=== PATIENT | female | born 1965 | race Caucasian/White ===

== ENCOUNTER 2018-07-03 02:01 | Outpatient (CLI) | payer BC, SELFPAY ==
--- NOTE | 2018-07-03 13:52 | DI.COMBO_ITS ---
SYMPTOMS/DIAGNOSIS: LUMP OF RIGHT BREAST, N63.10, RIGHT UPPER OUTER QUADRANT LUMP DIAGNOSTIC BILATERAL MAMMOGRAM AND RIGHT BREAST ULTRASOUND: Mammograms were interpreted according to the usual protocol including computer analysis with CAD system, tomosynthesis and C view imaging. MAMMOGRAMS: The palpable abnormality is felt in the axilla. A BB marker is placed over this area. Comparison is made with exams from 2008. The breasts are composed of heterogeneously dense fibroglandular tissue, breast density category C. Beneath the area marked, in the axilla, there is an abnormally enlarged dense rounded mass, partially included on the MLO view, consistent with a pathologically enlarged lymph node. In the upper outer quadrant of the right breast, there is a 16 mm ill-defined mass. Two other areas of increased density are questioned, which did not persistent on spot compression views, one in the upper outer quadrant and the other closer to the nipple. There are abnormal, pleomorphic and branching calcifications seen in the upper outer quadrant of the right breast over a large area of approximately 8 cm. The left breast shows no evidence of masses or specific calcifications or changes since the previous exam. RIGHT BREAST ULTRASOUND: Right breast ultrasound shows an irregular mass in the upper outer quadrant, at the 10 o'clock position 6 cm from the nipple, measuring 1.6 cm. No additional masses were identified in the right breast. In the axilla, there is an abnormally enlarged, hypoechoic mass measuring 2.9 x 3 x 2.7 cm, which likely represents a metastatic lymph node. Additional smaller lymph nodes are seen, which have a normal appearance. IMPRESSION: Left breast category 1, negative. Right breast category 5. Mammogram and ultrasound findings are highly suspicious for malignancy. The findings were communicated to the patient, as well as [facility] after completion of the exam. [facility] ASSESSMENT OF FINDINGS: Highly suspicious of malignancy. Biopsy should be obtained. Category 5. Patient will receive a letter notifying them of these results. Bi-RADS category C. The breasts are heterogeneously dense, which may obscure small masses.
== END 2018-07-03 02:21 ==
PROVIDERS: PCP Nurse Practitioner Family; Visit Provider Nurse Practitioner Family
DX: N63.11 Unspecified lump in the right breast, upper outer quadrant (principal); R92.8 Other abnormal and inconclusive findings on diagnostic imaging of breast; R22.31 Localized swelling, mass and lump, right upper limb
CPT/HCPCS: 76642; 77062; 77066; G0279

== ENCOUNTER 2018-07-07 07:19 | Outpatient (CLI) | payer BC, SELFPAY ==
[2018-07-07 07:41] LABS: Abs Immature Grans 0.01 k/cumm (0.0-0.09); Absolute Basophil Count 0.03 k/cumm (0.0-0.2); Absolute Lymphocyte Count 1.53 k/cumm (1.2-3.4); Absolute Monocyte Count 0.45 k/cumm (0.11-0.7); Absolute Neutrophil Count 3.33 k/cumm (1.2-6.7); Basophils % 0.6; Eosinophils % 1.8; HCT 41.2 % (36.0-46.0); HGB 13.1 g/dL (12.0-15.5); Immature Grans % 0.2; Lymphocytes % 28.1; Mean Corp. HGB Concentration 31.8 g/dL (32.0-36.0); Mean Corpuscular Hemoglobin 28.9 pg (27.0-33.0); Mean Corpuscular Volume 90.7 fL (80-95); Monocytes % 8.3; Platelet Count 270 x1000/uL (130-400); RBC 4.54 m/cumm (4.00-5.20); RBC Distribution Width 12.2 % (11.7-14.6); White Blood Cell Count 5.45 k/cumm (4.4-10.8)
[2018-07-07 08:41] LABS: Anion Gap 7.6 mmol/L (3-11); BUN 21 mg/dL (7-18); CO2 30.4 mmol/L (21.0-32.0); CREATININE 1.02 mg/dL (0.55-1.02); Calcium 8.5 mg/dL (8.5-10.1); Chloride 104 mmol/L (98-107); Cholesterol 175 mg/dL (50-200); Estimated GFR 57.13 (mL/min/1.73m2); Glucose 106 mg/dL (70-100); HDL Cholesterol 58 mg/dL (40-60); LDL CHOLESTEROL 103 mg/dL (<100); Potassium 4.3 mmol/L (3.5-5.1); Sodium 142 mmol/L (136-145); TSH (W/Ref FT4) 5.77 uIU/mL (0.358-3.74); Triglyceride 92 mg/dL (30-150)
[2018-07-07 09:01] LABS: FREE T4 1.05 ng/dL (0.76-1.46)
== END 2018-07-07 07:39 ==
PROVIDERS: PCP Nurse Practitioner Family; Visit Provider Nurse Practitioner Family
DX: Z00.00 Encounter for general adult medical examination without abnormal findings (principal); N63.10 Unspecified lump in the right breast, unspecified quadrant; Z13.228 Encounter for screening for other metabolic disorders; Z13.220 Encounter for screening for lipoid disorders; Z13.29 Encounter for screening for other suspected endocrine disorder
CPT/HCPCS: 36415; 80048; 80061; 83721; 84439; 84443; 85025

== ENCOUNTER 2018-07-30 12:31 | Outpatient (REF) | payer BC, SELFPAY ==
--- NOTE | 2018-07-30 08:30 | PAPFT_PTH ---
PATIENT: Zaria Leiva LOC: [facility] U#:[id number] AGE/SX: 52/F ROOM: RE07/30/[address]: SURINDER Gomez : 1965 BED: DIS: 07/30/2018 SPEC #: [id number] RECD: 07/30/18 12:53 STATUS: BERT RERaymond #: [id number] SHU: 07/30/18 08:[address]: Marivel Ballesteros DEPT: [facility] Cytology RECD BY: Brianna Matute Tissues: 1 - CX/ENDOCX FOR PAP SMEARS Procedures: PAP THIN PREP/UVM Screening HPV DNA PROBE Comments: [id number]
== END 2018-07-30 12:51 ==
LOC: LBN 12:31
PROVIDERS: PCP Nurse Practitioner Family; Visit Provider Nurse Practitioner Family
DX: Z12.4 Encounter for screening for malignant neoplasm of cervix (principal); Z11.51 Encounter for screening for human papillomavirus (HPV)
CPT/HCPCS: 88142; 87624

== ENCOUNTER 2018-11-10 02:30 | Outpatient (CLI) | payer OTHER, SELFPAY ==
[2018-11-10 15:06] LABS: Abs Immature Grans 0.01 k/cumm (0.0-0.09); Absolute Basophil Count 0.01 k/cumm (0.0-0.2); Absolute Eosinophil Count 0.08 k/cumm (0.0-0.7); Absolute Monocyte Count 0.51 k/cumm (0.11-0.7); Basophils % 0.2; Eosinophils % 1.5; HCT 39.6 % (36.0-46.0); HGB 13.3 g/dL (12.0-15.5); Immature Grans % 0.2; Lymphocytes % 16.9; Mean Corp. HGB Concentration 33.6 g/dL (32.0-36.0); Mean Corpuscular Volume 89.2 fL (80-95); Mean Platelet Volume 9.9 fL (8.0-11.0); Monocytes % 9.6; Neutrophils % 71.6; Platelet Count 234 x1000/uL (130-400); RBC 4.44 m/cumm (4.00-5.20); RBC Distribution Width 12.2 % (11.7-14.6); White Blood Cell Count 5.31 k/cumm (4.4-10.8)
[2018-11-10 15:29] LABS: Hemoglobin A1C 5.9 % (4.5-6.2)
[2018-11-10 16:34] LABS: ALT 49 U/L (12-78); AST 22 U/L (15-37); Albumin 3.8 g/dL (3.4-5.0); Alkaline Phosphatase 59 U/L (46-116); Anion Gap 7.3 mmol/L (3-11); BUN 25 mg/dL (7-18); Bilirubin, Total 0.3 mg/dL (0.2-1.0); CO2 28.7 mmol/L (21.0-32.0); CREATININE 1.08 mg/dL (0.55-1.02); Calcium 9.1 mg/dL (8.5-10.1); Chloride 103 mmol/L (98-107); Estimated GFR 53.28 (mL/min/1.73m2); Glucose 91 mg/dL (70-100); Potassium 3.9 mmol/L (3.5-5.1); Sodium 139 mmol/L (136-145); TSH 4.08 uIU/mL (0.358-3.74); Total Protein 7.5 g/dL (6.4-8.2)
[2018-11-10 16:51] LABS: FREE T4 1.03 ng/dL (0.76-1.46)
== END 2018-11-10 02:50 ==
PROVIDERS: PCP Nurse Practitioner Family; Visit Provider Nurse Practitioner Family
DX: E04.9 Nontoxic goiter, unspecified (principal); R73.03 Prediabetes; E78.5 Hyperlipidemia, unspecified; C50.411 Malignant neoplasm of upper-outer quadrant of right female breast; Z17.0 Estrogen receptor positive status [ER+]
CPT/HCPCS: 36415; 80053; 83036; 84439; 84443; 85025

== ENCOUNTER 2018-11-25 08:29 | Outpatient (CLI) | payer OTHER, SELFPAY ==
[2018-11-25 16:09] LABS: Abs Immature Grans 0.06 k/cumm (0.0-0.09); Absolute Basophil Count 0.03 k/cumm (0.0-0.2); Absolute Eosinophil Count 0.02 k/cumm (0.0-0.7); Absolute Lymphocyte Count 0.91 k/cumm (1.2-3.4); Absolute Monocyte Count 0.69 k/cumm (0.11-0.7); Absolute Neutrophil Count 6.48 k/cumm (1.2-6.7); Basophils % 0.4; Eosinophils % 0.2; HCT 39.2 % (36.0-46.0); HGB 13.2 g/dL (12.0-15.5); Immature Grans % 0.7; Lymphocytes % 11.1; Mean Corp. HGB Concentration 33.7 g/dL (32.0-36.0); Mean Corpuscular Hemoglobin 30.2 pg (27.0-33.0); Mean Corpuscular Volume 89.7 fL (80-95); Monocytes % 8.4; Neutrophils % 79.2; Platelet Count 222 x1000/uL (130-400); RBC 4.37 m/cumm (4.00-5.20); RBC Distribution Width 12.4 % (11.7-14.6); White Blood Cell Count 8.19 k/cumm (4.4-10.8)
== END 2018-11-25 08:49 ==
PROVIDERS: PCP Nurse Practitioner Family; Visit Provider Nurse Practitioner Family
DX: C50.411 Malignant neoplasm of upper-outer quadrant of right female breast (principal); Z17.0 Estrogen receptor positive status [ER+]
CPT/HCPCS: 36415; 85025

== ENCOUNTER 2018-12-03 02:00 | Outpatient (CLI) | payer OTHER, SELFPAY ==
[2018-12-03 15:16] LABS: Abs Immature Grans 0.01 k/cumm (0.0-0.09); Absolute Basophil Count 0.01 k/cumm (0.0-0.2); Absolute Lymphocyte Count 0.28 k/cumm (1.2-3.4); Absolute Monocyte Count 0.02 k/cumm (0.11-0.7); Basophils % 0.1; HCT 41.1 % (36.0-46.0); HGB 13.6 g/dL (12.0-15.5); Immature Grans % 0.1; Lymphocytes % 2.8; Mean Corp. HGB Concentration 33.1 g/dL (32.0-36.0); Mean Corpuscular Hemoglobin 29.8 pg (27.0-33.0); Mean Corpuscular Volume 89.9 fL (80-95); Monocytes % 0.2; Neutrophils % 96.8; Platelet Count 449 x1000/uL (130-400); RBC 4.57 m/cumm (4.00-5.20); White Blood Cell Count 10.02 k/cumm (4.4-10.8)
[2018-12-03 15:26] LABS: ALT 74 U/L (12-78); AST 32 U/L (15-37); Albumin 3.8 g/dL (3.4-5.0); Alkaline Phosphatase 67 U/L (46-116); Anion Gap 8.3 mmol/L (3-11); BUN 19 mg/dL (7-18); Bilirubin, Total 0.4 mg/dL (0.2-1.0); CO2 29.7 mmol/L (21.0-32.0); CREATININE 0.95 mg/dL (0.55-1.02); Calcium 9.5 mg/dL (8.5-10.1); Chloride 103 mmol/L (98-107); Glucose 154 mg/dL (70-100); Potassium 4.1 mmol/L (3.5-5.1); Sodium 141 mmol/L (136-145); Total Protein 8.3 g/dL (6.4-8.2)
== END 2018-12-03 02:20 ==
PROVIDERS: PCP Nurse Practitioner Family; Visit Provider Nurse Practitioner Family
DX: C50.411 Malignant neoplasm of upper-outer quadrant of right female breast (principal); Z17.0 Estrogen receptor positive status [ER+]
CPT/HCPCS: 36415; 80053; 85025

== ENCOUNTER 2018-12-24 00:52 | Outpatient (CLI) | payer OTHER, SELFPAY ==
[2018-12-24 14:36] LABS: Abs Immature Grans 0.01 k/cumm (0.0-0.09); Absolute Basophil Count 0.01 k/cumm (0.0-0.2); Absolute Eosinophil Count 0.03 k/cumm (0.0-0.7); Absolute Lymphocyte Count 0.51 k/cumm (1.2-3.4); Absolute Neutrophil Count 7.39 k/cumm (1.2-6.7); Basophils % 0.1; Eosinophils % 0.4; HGB 12.1 g/dL (12.0-15.5); Immature Grans % 0.1; Lymphocytes % 6.3; Mean Corp. HGB Concentration 33.6 g/dL (32.0-36.0); Mean Corpuscular Volume 89.3 fL (80-95); Mean Platelet Volume 9.5 fL (8.0-11.0); Monocytes % 2.5; Neutrophils % 90.6; Platelet Count 396 x1000/uL (130-400); RBC 4.03 m/cumm (4.00-5.20); RBC Distribution Width 13.5 % (11.7-14.6); White Blood Cell Count 8.15 k/cumm (4.4-10.8)
[2018-12-24 14:52] LABS: ALT 40 U/L (12-78); AST 31 U/L (15-37); Albumin 3.5 g/dL (3.4-5.0); Alkaline Phosphatase 67 U/L (46-116); Anion Gap 7.6 mmol/L (3-11); BUN 18 mg/dL (7-18); Bilirubin, Total 0.3 mg/dL (0.2-1.0); CO2 29.4 mmol/L (21.0-32.0); Calcium 9.1 mg/dL (8.5-10.1); Chloride 103 mmol/L (98-107); Glucose 142 mg/dL (70-100); Potassium 3.8 mmol/L (3.5-5.1); Sodium 140 mmol/L (136-145); Total Protein 7.7 g/dL (6.4-8.2)
== END 2018-12-24 01:12 ==
PROVIDERS: PCP Nurse Practitioner Family; Visit Provider Nurse Practitioner Family
DX: C50.411 Malignant neoplasm of upper-outer quadrant of right female breast (principal); Z17.0 Estrogen receptor positive status [ER+]
CPT/HCPCS: 36415; 80053; 85025

== ENCOUNTER 2019-01-14 02:00 | Outpatient (CLI) | payer OTHER, SELFPAY ==
[2019-01-14 14:56] LABS: Abs Immature Grans 0.01 k/cumm (0.0-0.09); Absolute Basophil Count 0.01 k/cumm (0.0-0.2); Absolute Monocyte Count 0.22 k/cumm (0.11-0.7); Absolute Neutrophil Count 6.27 k/cumm (1.2-6.7); Basophils % 0.1; HCT 33.3 % (36.0-46.0); HGB 11.2 g/dL (12.0-15.5); Immature Grans % 0.1; Lymphocytes % 5.8; Mean Corp. HGB Concentration 33.6 g/dL (32.0-36.0); Mean Corpuscular Hemoglobin 30.4 pg (27.0-33.0); Mean Corpuscular Volume 90.5 fL (80-95); Mean Platelet Volume 9.1 fL (8.0-11.0); Monocytes % 3.2; Neutrophils % 90.8; Platelet Count 375 x1000/uL (130-400); RBC 3.68 m/cumm (4.00-5.20); RBC Distribution Width 14.4 % (11.7-14.6); White Blood Cell Count 6.91 k/cumm (4.4-10.8)
[2019-01-14 15:08] LABS: ALT 48 U/L (12-78); AST 36 U/L (15-37); Albumin 3.5 g/dL (3.4-5.0); Alkaline Phosphatase 63 U/L (46-116); Anion Gap 8.1 mmol/L (3-11); BUN 21 mg/dL (7-18); Bilirubin, Total 0.4 mg/dL (0.2-1.0); CO2 28.9 mmol/L (21.0-32.0); CREATININE 0.73 mg/dL (0.55-1.02); Calcium 9.1 mg/dL (8.5-10.1); Chloride 103 mmol/L (98-107); Glucose 141 mg/dL (70-100); Potassium 3.8 mmol/L (3.5-5.1); Sodium 140 mmol/L (136-145); Total Protein 7.3 g/dL (6.4-8.2)
== END 2019-01-14 02:20 ==
PROVIDERS: PCP Nurse Practitioner Family
DX: C50.411 Malignant neoplasm of upper-outer quadrant of right female breast (principal); Z17.0 Estrogen receptor positive status [ER+]
CPT/HCPCS: 36415; 80053; 85025

== ENCOUNTER 2019-07-31 10:34 | Outpatient (CLI) | payer OTHER, SELFPAY ==
[2019-07-31 13:16] LABS: Calculated LDL 70 mg/dL; Cholesterol 164 mg/dL (50-200); HDL Cholesterol 64 mg/dL (40-60); Triglyceride 151 mg/dL (30-150)
[2019-07-31 13:33] LABS: Hemoglobin A1C 5.4 % (4.5-6.2)
[2019-07-31 17:11] LABS: FREE T4 0.83 ng/dL (0.76-1.46); TSH 4.94 uIU/mL (0.36-3.74)
[2019-08-03 09:32] LABS: Thyroglobulin Antibody 146 U/mL (<61); Thyroperoxidase Antibody 688 U/mL (<61)
== END 2019-07-31 10:54 ==
PROVIDERS: PCP Nurse Practitioner Family; Visit Provider Nurse Practitioner Family
DX: E03.9 Hypothyroidism, unspecified (principal); R73.03 Prediabetes; R79.89 Other specified abnormal findings of blood chemistry
CPT/HCPCS: 36415; 80061; 86376; 83036; 84439; 84443

== ENCOUNTER 2019-08-19 14:59 | Outpatient (CLI) | payer OTHER, SELFPAY ==
[2019-08-20 13:20] LABS: Thyroglobulin Antibody 148 U/mL (<61); Thyroperoxidase Antibody 811 U/mL (<61)
== END 2019-08-19 15:19 ==
PROVIDERS: PCP Nurse Practitioner Family; Visit Provider Nurse Practitioner Family
DX: E03.9 Hypothyroidism, unspecified (principal)
CPT/HCPCS: 36415; 86376

== ENCOUNTER 2019-09-07 01:14 | Outpatient (CLI) | payer OTHER, SELFPAY ==
--- NOTE | 2019-09-07 15:48 | DI.US_ITS ---
EXAM: US THYROID CLINICAL HISTORY: Questioning thyromegaly E04.9 GOITER, E03.9 HYPOTHYROIDISM, H/O BREAST CA TECHNIQUE: Ultrasound performed using standard protocol. COMPARISON: No previous for comparison FINDINGS: The right lobe measures 4.3 x 1.9 x 1.5 cm. No discrete mass is seen. The left lobe measures 3.5 x 1.1 x 0.9 cm. No discrete mass is present. The isthmus is within normal limits at 3.2 mm. There is symmetric blood flow to the thyroid gland. IMPRESSION: No evidence of thyromegaly or thyroid mass.
== END 2019-09-07 01:34 ==
PROVIDERS: PCP Nurse Practitioner Family; Visit Provider Nurse Practitioner Family
DX: E03.9 Hypothyroidism, unspecified (principal); Z85.3 Personal history of malignant neoplasm of breast
CPT/HCPCS: 76536

== ENCOUNTER 2020-08-04 22:53 | Outpatient (REF) | payer OTHER, SELFPAY ==
[2020-08-04 21:16] LABS: HCT 40.8 % (36.0-46.0); HGB 13.5 g/dL (11.2-15.7); MCH 30.1 pg (27.0-33.0); MCHC 33.1 % (32.0-36.0); MCV 90.9 fL (80-95); MPV 11.1 fL (8.0-11.0); Platelet Count 252 10^3/uL (130-400); RBC 4.49 10^6/uL (3.93-5.22); RDW 11.8 % (11.7-14.6); RDW-SD 38.5 fL; WBC 5.27 10^3/uL (4.4-10.8)
[2020-08-04 21:44] LABS: ALT 26 U/L (14-59); AST 21 U/L (15-37); Albumin 3.9 g/dL (3.4-5.0); Alkaline Phosphatase 52 U/L (46-116); Anion Gap 7.6 mmol/L (3-11); BUN 19 mg/dL (7-18); Bilirubin, Total 0.3 mg/dL (0.2-1.0); CO2 29.4 mmol/L (21.0-32.0); CREATININE 0.88 mg/dL (0.55-1.02); Chloride 103 mmol/L (98-107); FREE T4 0.88 ng/dL (0.76-1.46); Glucose 85 mg/dL (74-106); Potassium 4.1 mmol/L (3.5-5.1); Sodium 140 mmol/L (136-145); TSH 5.82 uIU/mL (0.36-3.74); Total Protein 7.6 g/dL (6.4-8.2)
== END 2020-08-04 23:13 ==
LOC: LBN 22:53
PROVIDERS: PCP Nurse Practitioner Family; Visit Provider Nurse Practitioner Family
DX: E03.9 Hypothyroidism, unspecified (principal); Z85.3 Personal history of malignant neoplasm of breast
CPT/HCPCS: 80053; 85027; 84439; 84443

== ENCOUNTER 2021-03-17 13:36 | Outpatient (REF) | payer OTHER, SELFPAY ==
--- NOTE | 2021-03-17 13:00 | PAPFT_PTH ---
PATIENT: Zaria Leiva LOC: [facility] U#:[id number] AGE/SX: 55/F ROOM: RE03/17/[address]: SURINDER Gomez : 1965 BED: DIS: 03/17/2021 SPEC #: [id number] RECD: 03/21/21 12:35 STATUS: BERT RERaymond #: [id number] SHU: 03/17/21 13:[address]: Marivel Ballesteros DEPT: [facility] Cytology RECD BY: Brianna Matute Tissues: 1 - CX/ENDOCX FOR PAP SMEARS Procedures: PAP THIN PREP/UVM Screening HPV DNA PROBE Comments: [id number]
== END 2021-03-17 13:37 | disposition home or self-care (01) ==
LOC: LBN 13:36
PROVIDERS: PCP Nurse Practitioner Family; Visit Provider Nurse Practitioner Family
DX: Z12.4 Encounter for screening for malignant neoplasm of cervix (principal); Z11.51 Encounter for screening for human papillomavirus (HPV)
CPT/HCPCS: 88142; 87624

== ENCOUNTER 2021-10-26 03:03 | Outpatient (CLI) | payer OTHER, SELFPAY ==
[2021-10-26 14:58] LABS: Anion Gap 5.8 mmol/L (3-11); BUN 24 mg/dL (7-18); CO2 31.2 mmol/L (21.0-32.0); CREATININE 0.9 mg/dL (0.55-1.02); Calcium 8.7 mg/dL (8.5-10.1); Chloride 104 mmol/L (98-107); FREE T4 0.82 ng/dL (0.76-1.46); Glucose 108 mg/dL (74-106); Potassium 3.7 mmol/L (3.5-5.1); Sodium 141 mmol/L (136-145); TSH 6.04 uIU/mL (0.36-3.74)
== END 2021-10-26 03:04 | disposition home or self-care (01) ==
LOC: LBO 03:03
PROVIDERS: PCP Nurse Practitioner Family; Visit Provider Nurse Practitioner Family
DX: E03.9 Hypothyroidism, unspecified (principal)
CPT/HCPCS: 36415; 80048; 84439; 84443

== ENCOUNTER 2022-10-16 02:12 | Outpatient (CLI) | payer BC, SELFPAY ==
[2022-10-16 14:51] LABS: HCT 38.3 % (36.0-46.0); HGB 12.8 g/dL (11.2-15.7); MCH 30.1 pg (27.0-33.0); MCHC 33.4 % (32.0-36.0); MCV 90 fL (80-95); MPV 10.2 fL (8.0-11.0); Neutrophils % 59.6; Platelet Count 237 10^3/uL (130-400); RBC 4.25 10^6/uL (3.93-5.22); RDW 11.9 % (11.7-14.6); RDW-SD 39.2 fL; WBC 5.42 10^3/uL (4.4-10.8)
[2022-10-16 14:52] LABS: Abs Immature Grans 0.01 10^3/uL (0.0-0.06); Absolute Basophil Count 0.03 10^3/uL (0.0-0.2); Absolute Lymphocyte Count 1.46 10^3/uL (1.2-3.4); Absolute Monocyte Count 0.59 10^3/uL (0.1-0.8); Absolute Neutrophil Count 3.23 10^3/uL (1.2-6.7); Basophils % 0.6; Eosinophils % 1.8; Immature Grans % 0.2; Lymphocytes % 26.9; Monocytes % 10.9
[2022-10-16 15:47] LABS: ALT 22 U/L (14-59); AST 25 U/L (15-37); Albumin 3.9 g/dL (3.4-5.0); Alkaline Phosphatase 61 U/L (46-116); Anion Gap 4.6 mmol/L (3-11); BUN 21 mg/dL (7-18); Bilirubin, Total 0.2 mg/dL (0.2-1.0); CO2 31.4 mmol/L (21.0-32.0); CREATININE 1.1 mg/dL (0.55-1.02); Calcium 8.7 mg/dL (8.5-10.1); Chloride 103 mmol/L (98-107); Estimated GFR 58.97 (mL/min/1.73m2); Glucose 110 mg/dL (74-106); Sodium 139 mmol/L (136-145); TSH (W/Ref FT4) 6.91 uIU/mL (0.36-3.74); Total Protein 7.9 g/dL (6.4-8.2)
[2022-10-16 16:08] LABS: FREE T4 0.83 ng/dL (0.76-1.46)
== END 2022-10-16 02:13 | disposition home or self-care (01) ==
LOC: LBO 02:12
PROVIDERS: PCP Nurse Practitioner Family; Visit Provider Nurse Practitioner Family
DX: R25.2 Cramp and spasm (principal); Z85.3 Personal history of malignant neoplasm of breast; E03.9 Hypothyroidism, unspecified
CPT/HCPCS: 36415; 80053; 83735; 84439; 84443; 85025

== ENCOUNTER 2023-01-07 19:38 | Emergency (ER) | payer BC, SELFPAY ==
[2023-01-07 19:41] VITALS: BP 146/76; PULSE 74; RESP 16; TEMP 36.2; O2SAT 97
--- NOTE | 2023-01-07 19:53 | ED.GENADUL_ITS ---
Discharge Plan Disposition Patient Disposition: Home Condition: Good Discharge Details Clinical Impression: Contusion of chest wall Primary Care Provider: Marivel Ballesteros ED Provider: Emmy Bryant Home Meds and New Rx's Prescriptions: Continued tamoxifen 20 mg tablet 20 mg PO DAILY multivitamin [One Daily Multivitamin] Tablet 1 tab PO DAILY magnesium oxide 500 mg capsule 500 mg PO QHS Discharge Instructions Instructions: Contusion in Adults (ED) Additional Instructions: Imaging is reassuring here today. Please encourage hydration. May use Tylenol and/or ibuprofen as needed for discomfort. Please follow-up with primary care in 1 to 2 weeks for reevaluation. If you develop shortness of breath, increased pain, fever/chills or other new/worsening symptom please seek care urgently once again. Referrals: Marivel Ballesteros, [employer] [Primary Care Provider] - Medical Decision Making Patient is a pleasant 57-year-old female presenting with chief complaint of right-sided chest pain after being kicked in the chest by a horse. States that it happened about 2 hours prior to arrival. She states that the horse kicked her with his rear foot. Did not fall to the ground. Did not strike her head, no loss of consciousness. Denies feeling short of breath but states that she does have some discomfort with deep inspiration. No cough. Pain does not radiate. No nausea, vomiting, back pain. She denies any incontinence. Denies any pain rating into the arm. Denies any arm pain. On exam, patient appears nontoxic. Hemodynamically stable. Lungs are clear. Abdomen is benign. Minimal discomfort elicited on the upper aspect of the ribs on the right side laterally. However, no deformity or crepitus is palpable. No pain with AP or lateral compression of the ribs. No abdominal tenderness. No midline tenderness of the C, T or L-spine. We will obtain an ultrasound. Efast performed by myself and Dr. Hull with no acute traumatic injury noted. FINDINGS: Lungs: No pulmonary consolidation is seen. Pleural spaces: No pleural effusion or pneumothorax is demonstrated. Heart/Mediastinum: Heart size is normal. Bones/joints: The visualized bony structures appear grossly intact, as seen. IMPRESSION: No active disease is seen in the chest. Discussed with patient. We will give incentive spirometer to encourage deep breathing. Advised contusion. Encourage hydration. Tylenol and ibuprofen as needed for discomfort. I did offer ibuprofen and patient declined, advised that she will take this at home. Return precautions discussed. Encourage follow-up with primary care. Her questions and concerns were addressed and she is in agreement with this plan. HPI General Date/Time Provider Initiated Documentation: 01/07/23 19:41 . Limitations to Documentation: no limitations . Information obtained by: patient, family and RN notes reviewed . History of Present Illness 57 year old F presents to the emergency department with the chief complaint of right upper chest pain after being kicked by horse, described as moderate, with intensity rated at 4. Quality is described as aching, and is localized to the chest. Patient reports no radiation. Patient started experiencing this hour(s) and it has been constant (improving). Immobilization improves symptom(s), Other factors that worsen symptoms (deep breathing, leaning forward) . Patient notes no other symptoms.. Patient did receive the following treatments prior to arrival, none Related Data Home Medications Medication Instructions Recorded Confirmed tamoxifen 20 mg tablet 20 mg PO DAILY 07/31/19 10/12/22 multivitamin (One Daily 1 tab PO DAILY 10/11/21 10/12/22 Multivitamin tablet) magnesium oxide 500 mg capsule 500 mg PO QHS 10/12/22 10/12/22 Allergies Allergy/AdvReac Type Severity Reaction Status Date / Time No Known Allergies Allergy Unverified 10/11/21 13:01 General Stated Complaint: Trauma JAMES: 3 Review of Systems Constitutional Constitutional: Reports as per HPI, Denies headache(s) and Denies weakness Eyes Eyes: Reports as per HPI and Denies change in vision ENT Ears, Nose, Mouth, and Throat: Denies abnormal hearing and Denies headache(s) Cardiovascular Cardiovascular: Reports as per HPI and Denies dyspnea Respiratory Respiratory: Reports as per HPI, Denies cough and Denies dyspnea Gastrointestinal Gastrointestinal: Reports as per HPI, Denies abdominal pain, Denies nausea and Denies vomiting Genitourinary Genitourinary: Reports as per HPI and Denies urinary incontinence Musculoskeletal Musculoskeletal: Reports as per HPI Integumentary/Breasts Skin/Breast: Reports as per HPI and Denies rash Neurologic Neurologic: Reports as per HPI, Denies abnormal hearing, Denies abnormal movements, Denies abnormal speech, Denies headache(s), Denies lack of coordination, Denies localized weakness, Denies seizure-like activity, Denies paresthesias and Denies weakness PFSH All Active Problems (Updated 01/07/23 @ 21:27 by JEN Starks) Contusion of chest wall (Acute) History of right breast cancer (Chronic) 2018, DCIS, ER/HI positive HER-2 negative. S/p mastectomy, radiation, chemo. Tamoxifen started 03/15, planned for 5yrs. Followed by [facility] Oncology Subclinical hypothyroidism (Chronic) Medical History COVID-19 virus infection (~01/2021) Malignant neoplasm of right breast (~06/2018) 2018, DCIS, ER/HI positive HER-2 negative. S/p mastectomy, radiation, chemo. Tamoxifen started 03/15, planned for 5yrs. Followed by [facility] Oncology Prediabetes Surgical History H/O lymph node excision (08/22/18) From right axillary, negative for cancer H/O wisdom tooth extraction (~1987) Status post partial mastectomy of right breast (08/22/18) Family History Self Adopted Maternal Grandmother Diabetes Social History (Updated 10/12/22 @ 16:34 by Carmen Yang) Smoking/Tobacco Use Status: Former Tobacco Use Quit Date: 10/28/17 Tobacco: How many years used: 5 Second Hand Exposure: Yes Smoking risk assessment performed?: Yes Alcohol Intake: current Alcohol Intake frequency: holidays/special occasions only Alcohol type: hard liquor Drug use: Never Substance use type: does not use Adopted: Yes Caregiver/Support person: No Household members: significant other Housing: house Communication Needs: None Do you need help understanding health information?: Never current occupation: [employer] Pets and animals: Yes Pets and animals: cat(s), dog(s), horse(s) and farm animals Sexually active: Yes Do you think of yourself as: lesbian/dunham/homosexual Current gender identity: female What is your relationship status?: living with partner How often do you talk on the phone with friends or family?: three or more times per week How often do you get together with friends or relatives?: three or more times per week How often do you attend hinduism or episcopalian services?: decline to answer Do you belong to any clubs or organized social groups?: no Panel score (0-1 are the most socially isolated patients): 2 What type of physical activity do you participate in: none Sigrid/Holiness: No preference Special sigrid needs: No Seatbelt use: always Helmet use: Yes Helmet use: always Drive intox or ride w/intox compressed air pile driver operator: No Do you feel safe at home: Yes Female Reproductive History Menstrual Menopause type: natural Date of menopause: 09/27/18 History History 0 Para Hx # Term Pregnancies Multiple births Hx # Pregnancies Ectopic pregnancies AB induced Hx Number of Living Children AB spontaneous Exam Const General: cooperative, healthy appearing, comfortable, no acute distress, well developed and well groomed Nutritional Appearance: average body habitus and well nourished Orientation: alert, awake and oriented x3 HENMT Head: normal to inspection, no palpable skull fracture, normocephalic and atraumatic Throat: posterior oropharynx normal Eyes General: appearance normal, both eyes and all related structures Neck Neck: normal visual inspection, full ROM, trachea midline and supple Chest Chest: normal inspection of the chest, normal palpation of entire chest wall, no crepitus, no localized rib tenderness and tenderness (mild tenderness right upper, lateral chest wall, no ecchymosis/swelling) Resp Effort & Inspection: normal respiratory effort, able to speak in complete sentences and no respiratory distress Auscultation: clear to auscultation bilaterally, no rales, no rhonchi and no wheezes Cardio Rate: regular rate Rhythm: regular rhythm Heart Sounds: S1 normal and S2 normal GI Inspection: normal to inspection, no abdominal wall ecchymosis, no edema and non-distended Palpation: soft, no hepatosplenomegaly, firm, no guarding and nontender Back/Spine/Pelvis Cervical Spine: normal cervical lordosis and cervical ROM normal Thoracic/Lumbar Spine: thoracic and lumbar spine normal to inspection, thoraco- lumbar ROM normal, No thoraco-lumbar ROM limited, No thoraco-lumbar spasm and No thoracic spinal tenderness Pelvis: no pain with anterior-posterior compression and no pain with lateral compression Skin General skin exam: no rashes or lesions noted Lesions: no lesions Rashes: no rashes Trauma: no lacerations or abrasions Wounds: no wounds Neuro General: patient alert, patient awake, patient oriented x3, gait normal, tone normal and moves all extremities Cranial Nerves: CN's II-XI intact bilaterally Cognition: normal cognition Speech: speech normal Gait: normal gait Motor: muscle tone normal throughout and strength 5/5 throughout Sensory Exam: no sensory deficits noted (no saddle paresthesias) Extrem General: normal to inspection (RUE), full ROM and capillary refill normal Course Vital Signs Vital signs: Vital Signs Temperature 36.2 C L 01/07/23 19:41 Pulse 74 01/07/23 19:41 Respiratory Rate 16 01/07/23 19:41 Blood Pressure 146/76 H 01/07/23 19:41 Pulse Oximetry 97 01/07/23 19:41 Temperature 36.2 C L 01/07/23 19:41 Temperature Source Temporal Artery Scan 01/07/23 19:41 Pulse 74 01/07/23 19:41 Respiratory Rate 16 01/07/23 19:41 Blood Pressure 146/76 H 01/07/23 19:41 Blood Pressure Position Sitting 01/07/23 19:41 Pulse Oximetry 97 01/07/23 19:41 Oxygen Delivery Method Room Air 01/07/23 19:41 Oxygen Flow Rate 0 01/07/23 19:41 Pain Level 4 01/07/23 19:41
[2023-01-07 20:00] VITALS: BP 141/77; PULSE 70; O2SAT 98
--- NOTE | 2023-01-07 20:15 | DI.RAD_ITS ---
Exam(s) XR CHEST 2V PA LATERAL EXAM: XR CHEST 2V PA LATERAL CLINICAL HISTORY: kicked by horse right upper chest TECHNIQUE: 2D digital imaging was performed. COMPARISON: No exams were available for comparison FINDINGS: HEART: Normal size. Aorta: Not dilated. PULMONARY VASCULATURE: Normal. LUNGS: Clear. PLEURAL SPACE: No pleural effusion or pneumothorax. BONE:Unremarkable for age. IMPRESSION: No acute abnormality. DATA REPOSITORY: RADIATION DOSE DELIVERED:
[2023-01-07] MEDS: Acetaminophen 500 MG TAB 1000 MG PO (20:29)
[2023-01-07 20:30] VITALS: BP 118/71; PULSE 64; O2SAT 98
--- NOTE | 2023-01-07 21:08 | DI.VRAD_ITS ---
PROCEDURE INFORMATION: Exam: XR Chest Exam date and time: 01/07/2023 8:39 PM Age: 57 years old Clinical indication: Other: Kicked by horse right upper chest TECHNIQUE: Imaging protocol: Radiologic exam of the chest. Views: 2 views. COMPARISON: No relevant prior studies available. FINDINGS: Lungs: No pulmonary consolidation is seen. Pleural spaces: No pleural effusion or pneumothorax is demonstrated. Heart/Mediastinum: Heart size is normal. Bones/joints: The visualized bony structures appear grossly intact, as seen. IMPRESSION: No active disease is seen in the chest. Dictated and Authenticated by: Addison Barajas MD. Ordering:FLACO Booth MD
[2023-01-07 21:42] VITALS: BP 110/51; PULSE 72; RESP 20; O2SAT 96
== END 2023-01-07 21:45 | disposition home or self-care (01) ==
PROVIDERS: Emergency Provider Physician Assistant; PCP Nurse Practitioner Family
DX: S20.219A Contusion of unspecified front wall of thorax, initial encounter (principal); W55.12XA Struck by horse, initial encounter
CPT/HCPCS: 76604; 76705; 76857; 99283; 99284; 71046

== ENCOUNTER 2023-10-24 01:00 | Outpatient (CLI) | payer BC, SELFPAY ==
[2023-10-24 14:01] LABS: Abs Immature Grans 0.01 10^3/uL (0.0-0.06); Absolute Basophil Count 0.02 10^3/uL (0.0-0.2); Absolute Eosinophil Count 0.06 10^3/uL (0.0-0.7); Absolute Lymphocyte Count 1.59 10^3/uL (1.2-3.4); Absolute Monocyte Count 0.41 10^3/uL (0.1-0.8); Absolute Neutrophil Count 3.59 10^3/uL (1.2-6.7); Basophils % 0.4; Eosinophils % 1.1; HCT 39.3 % (36.0-46.0); HGB 12.9 g/dL (11.2-15.7); Immature Grans % 0.2; MCH 29.1 pg (27.0-33.0); MCHC 32.8 % (32.0-36.0); MCV 89 fL (80-95); MPV 9.5 fL (8.0-11.0); Monocytes % 7.2; Neutrophils % 63.1; Platelet Count 239 10^3/uL (130-400); RBC 4.43 10^6/uL (3.93-5.22); RDW 12.2 % (11.7-14.6); WBC 5.68 10^3/uL (4.4-10.8)
[2023-10-24 15:04] LABS: ALT 24 U/L (14-59); AST 24 U/L (15-37); Albumin 3.7 g/dL (3.4-5.0); Alkaline Phosphatase 50 U/L (46-116); BUN 20 mg/dL (7-18); Bilirubin, Total 0.4 mg/dL (0.2-1.0); Calcium 9.2 mg/dL (8.5-10.1); Calculated LDL 106 mg/dL (<100); Chloride 103 mmol/L (98-107); Cholesterol 192 mg/dL (<200); Estimated GFR 65.71 (mL/min/1.73m2); Glucose 94 mg/dL (74-106); HDL Cholesterol 65 mg/dL (40-60); Sodium 140 mmol/L (136-145); TSH (W/Ref FT4) 7.15 uIU/mL (0.36-3.74); Total Protein 7.6 g/dL (6.4-8.2); Triglyceride 107 mg/dL (<150)
[2023-10-24 15:25] LABS: FREE T4 0.87 ng/dL (0.76-1.46)
[2023-10-24 23:28] LABS: Hepatitis C Ab w Rflx HCV PCR Negative (Negative)
== END 2023-10-24 01:01 | disposition home or self-care (01) ==
LOC: LBO 01:00
PROVIDERS: PCP Nurse Practitioner Family; Visit Provider Nurse Practitioner Family
DX: E03.9 Hypothyroidism, unspecified (principal); Z00.00 Encounter for general adult medical examination without abnormal findings; Z85.3 Personal history of malignant neoplasm of breast
CPT/HCPCS: 36415; 80053; 80061; 86803; 84439; 84443; 85025

== ENCOUNTER → 2023-12-09 00:55 | Outpatient (CLI) | payer OTHER, SELFPAY ==
--- NOTE | 2023-12-09 08:30 | DI.RAD_ITS ---
Exam(s) XR LUMBAR SPINE COMPLETE EXAM: XR LUMBAR SPINE COMPLETE CLINICAL HISTORY: suspected radicular back pain, no prior back imaging, M54.10. TECHNIQUE: 2D digital imaging was performed. Five views. COMPARISON: CR,XR XR CHEST 2V PA LATERAL from 01/07/2023 FINDINGS: Mild compression fractures of T12 and L1. No change from prior chest x-ray. Remaining vertebral bod ies show normal height. Prominent endplate osteophytes. Scoliosis. Facet degenerative changes grea test at L4-5 and L5-S1. Severe narrowing of the L5-S1 disc space. No spondylolysis. SI joints are unremarkable. IMPRESSION: Degenerative changes greatest at L5-S1. Stable mild compression fractures. Degenerative changes and scoliosis.. DATA REPOSITORY: RADIATION DOSE DELIVERED:
--- NOTE | 2023-12-09 08:30 | DI.US_ITS ---
Exam(s) US SOFT TISS EXTREMITY/GROIN EXAM: US SOFT TISS EXTREMITY/GROIN CLINICAL HISTORY: groin pain, hernia?, jesse groin pain, R10.31 rt/lt lower quad pain, R10.32. TECHNIQUE: Ultrasound was performed using standard protocol. COMPARISON: No exams were available for comparison FINDINGS: Sonographic assessment utilizing grayscale and color Doppler imaging was performed and targeted to th e area of clinical concern. The inner thigh was scanned from groin to knee. No evidence of a hernia. No evidence of adenopathy or fluid collection. Saphenous vein appears free of thrombus. No abnormally dilated venous varicosities. Common femoral vein is free of thrombus. IMPRESSION: Evidence of a hernia. DATA REPOSITORY:
== END ==
PROVIDERS: PCP Nurse Practitioner Family; Visit Provider Nurse Practitioner Family
DX: M51.37 Other intervertebral disc degeneration, lumbosacral region (principal); R10.31 Right lower quadrant pain
CPT/HCPCS: 76882; 72110

== ENCOUNTER → 2023-12-26 03:01 | Outpatient (CLI) | payer OTHER, SELFPAY ==
--- NOTE | 2023-12-26 12:00 | DI.DEXA_ITS ---
Exam(s) XR DEXA BONE DENSITY W/WO GIOVANNA EXAM: XR DEXA BONE DENSITY W/WO GIOVANNA CLINICAL HISTORY: osteoporosis screening Z78.0 MENOPAUSAL STATE Z85.3 PERS HX BREAST CANCER TECHNIQUE: COMPARISON: No exams were available for comparison FINDINGS: Lateral Spine Image: Unremarkable. No compression deformities identified. Left hip: Total T-Score: -0.9 Total Z-Score: -0.1 T- and Z-scores: Within normal limits. Lumbar Spine: Total T-Score: 1.3 Total Z-Score: 2.5 T- and Z-scores: Within normal limits. IMPRESSION: No evidence of osteoporosis.
== END ==
PROVIDERS: PCP Nurse Practitioner Family; Visit Provider Nurse Practitioner Family
DX: Z78.0 Asymptomatic menopausal state (principal); Z85.3 Personal history of malignant neoplasm of breast; Z13.820 Encounter for screening for osteoporosis
CPT/HCPCS: 77080

== ENCOUNTER → 2024-01-08 00:55 | Outpatient (CLI) | payer OTHER, SELFPAY ==
--- NOTE | 2024-01-08 15:10 | DI.MRI_ITS ---
Exam(s) MR LUMBAR SPINE WO EXAM: MR LUMBAR SPINE WO CLINICAL HISTORY: lumbar radiculopathy,m54.16,? herniated disc, stenosis. TECHNIQUE: Multiplanar multisequence MRI of the Lumbar spine was performed. COMPARISON: CR XR LUMBAR SPINE COMPLETE from 12/09/2023 CR XR DEXA BONE DENSITY W/WO GIOVANNA from 12/26/2023 FINDINGS: Bones: The last intervertebral disc space is designated the L5/S1 level for the numbering purpose of this examination. There are endplate osteophytes throughout the lumbar spine and lower thoracic spi ne. There is a left convex curvature of the thoracolumbar spine. Endplate degenerative signal marie es are present predominantly in the upper lumbar spine. 2-3 mm retrolisthesis is seen at L1-L2 and L 2-L3 and L3-L4. Cord: The conus tip ends at the L1 level. It is of normal size and signal intensity. T12-L1: No disc herniations or bulges are present. No central spinal canal or neural foraminal stenos is. L1-2: No disc herniations or bulges are present. No central spinal canal or neural foraminal stenosis . L2-3: Degenerative changes of the facets are seen. No significant central spinal canal stenosis is p resent. There is moderate bilateral neural foraminal stenosis, left greater than right. L3-4: There is a diffuse disc bulge. There are degenerative changes of the facets. Very mild narrow ing of the central spinal canal is present. Mild right and moderate left neural foraminal stenosis i s present. L4-5: There is a diffuse disc bulge. There are hypertrophic changes of the ligamentum flavum. No si gnificant central spinal canal stenosis is seen. There is mild bilateral neural foraminal stenosis. L5-S1: There is a diffuse disc bulge. There are degenerative changes of the facets. No central spin al canal stenosis is seen. Mild right neural foraminal stenosis is seen. No significant left neural foraminal stenosis is present. Soft tissues: The visualized SI joints and sacrum are well maintained. The paraspinal soft tissues ar e unremarkable. Visualized abdominal organs: There is a simple cyst in the left kidney. No follow-up is recommended. IMPRESSION: Multilevel degenerative changes in the lumbar spine resulting in central spinal canal and neural fora jose stenosis as described above. DATA REPOSITORY:
== END ==
PROVIDERS: PCP Nurse Practitioner Family; Visit Provider Nurse Practitioner Family
DX: M48.062 Spinal stenosis, lumbar region with neurogenic claudication
CPT/HCPCS: 72148

== ENCOUNTER 2024-10-06 02:03 | Outpatient (CLI) | payer OTHER, SELFPAY ==
[2024-10-06 15:08] LABS: Abs Immature Grans 0.02 10^3/uL (0.0-0.06); Absolute Basophil Count 0.05 10^3/uL (0.0-0.2); Absolute Eosinophil Count 0.15 10^3/uL (0.0-0.7); Absolute Lymphocyte Count 1.61 10^3/uL (1.2-3.4); Absolute Monocyte Count 0.51 10^3/uL (0.1-0.8); Absolute Neutrophil Count 3.75 10^3/uL (1.2-6.7); Basophils % 0.8 %; Eosinophils % 2.5 %; HCT 42.1 % (36.0-46.0); Immature Grans % 0.3 %; Lymphocytes % 26.4 %; MCHC 33.3 % (32.0-36.0); MCV 90 fL (80-95); MPV 9.6 fL (8.0-11.0); Monocytes % 8.4 %; Neutrophils % 61.6 %; Platelet Count 280 10^3/uL (130-400); RBC 4.67 10^6/uL (3.93-5.22); RDW 12.1 % (11.7-14.6); RDW-SD 39.9 fL; WBC 6.09 10^3/uL (4.4-10.8)
[2024-10-06 15:47] LABS: Hemoglobin A1C 5.9 % (<5.7)
[2024-10-06 15:54] LABS: ALT 25 U/L (14-59); AST 22 U/L (15-37); Albumin 4.1 g/dL (3.4-5.0); Alkaline Phosphatase 73 U/L (46-116); Anion Gap 8.6 mmol/L (3-11); BUN 24 mg/dL (7-18); Bilirubin, Total 0.25 mg/dL (0.2-1.0); CO2 29.4 mmol/L (21.0-32.0); Calcium 9.3 mg/dL (8.5-10.1); Chloride 104 mmol/L (98-107); Glucose 99 mg/dL (74-106); Potassium 4.2 mmol/L (3.5-5.1); Sodium 142 mmol/L (136-145); TSH (W/Ref FT4) 7.08 uIU/mL (0.36-3.74); Total Protein 8.2 g/dL (6.4-8.2)
[2024-10-06 16:12] LABS: FREE T4 0.91 ng/dL (0.76-1.46)
[2024-10-07] LABS: HBs Antibody, Quant 205.5 mIU/mL (See Note); Hep B Surface Ab Positive (See Note); Hepatitis B Core Antibody Negative (Negative); Hepatitis B Surface Antigen Negative (Negative)
[2024-10-07 00:02] LABS: HIV-1/2 Ag & Ab Screen Negative (Negative)
== END 2024-10-06 02:04 | disposition home or self-care (01) ==
LOC: LBO 02:03
PROVIDERS: PCP Nurse Practitioner Family; Visit Provider Nurse Practitioner Family
DX: E03.9 Hypothyroidism, unspecified (principal); Z85.3 Personal history of malignant neoplasm of breast; Z11.4 Encounter for screening for human immunodeficiency virus [HIV]; Z11.59 Encounter for screening for other viral diseases
CPT/HCPCS: 36415; 80053; 86704; 86706; 87340; 87389; 83036; 84439; 84443; 85025